=== PATIENT | female | born 1935 | race Caucasian/White ===

== ENCOUNTER 2017-12-29 14:14 | Inpatient (IN) | payer OTHER, SELFPAY ==
[2017-12-29] VITALS (18 sets, daily range): BP systolic 123–189; BP diastolic 79–99; PULSE 75–106; RESP 12–24; TEMP 36.6–36.8; O2SAT 92–100; BMI 39.6
--- NOTE | 2017-12-29 14:23 | EKG12_ITS ---
Test Reason : SOB Blood Pressure : / mmHG Vent. Rate : 082 BPM Atrial Rate : 054 BPM P-R Int : 000 ms QRS Dur : 128 ms QT Int : 376 ms P-R-T Axes : 000 070 -72 degrees QTc Int : 439 ms Atrial fibrillation Right bundle branch block T wave abnormality, consider inferolateral ischemia Abnormal ECG Confirmed by TASHI VINCENT, GALLO ([id number]), visual effects editor ONEIL VAUGHN ([id number]) on 12/31/2017 4:06:10 PM Referred By: AMALIA Confirmed By:GALLO AKINS MD
--- NOTE | 2017-12-29 14:23 | RAD_ITS ---
STUDY: X-RAY CHEST REASON FOR EXAM: Female, 82 years old. Shortness of breath. Treated For bronchitis TECHNIQUE: Single AP portable view of the chest. COMPARISON: None. FINDINGS: There is a pattern of increased perihilar interstitial markings. There is vascular prominence. There is no demonstrated pleural abnormality. There is mild cardiac enlargement. Normal mediastinum and rossana. Normal visualized pulmonary arteries. There is atherosclerotic calcification of the aortic arch with tortuosity. Normal visualized thoracic spine. Normal visualized ribs, clavicles, and shoulders. There is no demonstrated abnormality of the visualized soft tissue structures of the upper abdomen. RAD/Chest 1 View (Portable) IMPRESSION: Findings suspicious for vascular congestion. Cannot exclude atypical infiltrates. Electronically Signed: Alisa Lainez MD at 14:48 EST Tel , Service support ,
[2017-12-29] MEDS: Ipratropium/Albuterol Sulfate 3 ML AMPUL.NEB INHALATION ×3 (14:36→22:35)
[2017-12-29 14:40] LABS: Absolute Lymphocyte Count 1.11 X10^3/ul (0.83-4.51); Absolute Neutrophil Count 6.8 X10^3/uL (2.0-7.7); Basophil# 0.04 X10^3/uL; Basophil% 0.4 % (0-1); Eosinophil# 0.14 X10^3/uL; Eosinophils% 1.5 % (0-5); Hemoglobin 9.5 g/dl (12.0-15.0); Lymphocyte # 1.11 X10^3/ul (4.0); Lymphocyte % 12.2 % (19-41); Mean Corp Hgb Conc 28.8 g/gl (32-36); Mean Corpuscular Hgb 24.2 pg (27.0-32.0); Mean Platelet Vol. 9.5 fl (6.2-12.0); Monocyte# 1.01 X10^3/uL; Monocyte% 11.1 % (0-10); Neutrophil # 6.77 X10^3/uL (2.7-7.7); Neutrophil % 74.6 % (47-70); POSITIVE COUNT NO; POSITIVE DIFFERENTIAL NO; POSITIVE MORPHOLOGY NO; Platelet Count 409 K/mm3 (150-450); RBC Distribution Width CV 18.9 % (11.6-14.6); RBC Distribution Width SD 57.2 fl (35.1-43.9); Red Blood Count 3.93 M/mm3 (4.2-5.4); White Blood Count 9.1 K/mm3 (4.4-11.0)
[2017-12-29] MEDS: MethylPREDNISolone 125 MG/2 ML Vial 60 MG IV (14:52)
[2017-12-29 14:58] LABS: Anion Gap 5 (5-15); BUN 27 mg/dL (7-18); BUN/Creat Ratio 31.9 RATIO (10-20); Calcium,Total 8.6 mg/dL (8.5-10.1); Chloride 104 mmol/L (98-107); Creatinine, Serum 0.85 mg/dL (0.55-1.02); EST Glomerular Filtration Rate 68 mL/min (>60); Est Glom Filt Rate - Afr Amer 83 mL/min (>60); Estimated Creatinine Clearance 49.62 ml/min; Glucose 197 mg/dL (74-106); Potassium 4.7 mmol/L (3.5-5.1); Sodium Level 139 mmol/L (136-145)
[2017-12-29 15:07] LABS: BNP,B-Type NATRIURETIC PEPTIDE 354.6 pg/mL (0-100)
[2017-12-29 15:26] LABS: Allen Test POS; Base Excess 5 mmol/L (-2 to +2); Bicarbonate 30.9 mmol/L (22-26); Blood Gas Specimen Type ART; EPAP 6; FI02 40; IPAP 12; PO2 77 mmHG (75-100); RR 12; SITE L Radial; SO2 94 % (95-99); Time Given 1518; Total Carbon Dioxide 33 mmol/L; pH 7.34 (7.35-7.45)
--- NOTE | 2017-12-29 15:55 | ED.VISSUMM ---
- ER Visit Summary Date of Service: 12/29/17 Chief Complaint: [Shortness of breath] History of Present Illness: The patient is a 82 F [presents the emergency department with 4 day history of increasing shortness of breath. Patient's had a cough and was started recently on Zithromax and prednisone. Patient apparently has had bronchitis diagnosed ?4 this winter. Patient is coughing and at times bringing up some white sputum. Patient has not had any fever.] Patient was found to be hypoxic on EMS arrival with an O2 sat of 85%. Patient currently on Eliquis for history of atrial fibrillation. Physical Examination: [HEENT-PERRLA, EOMI. Cranial nerves II through XII grossly intact. TMs clear. Mucous membranes moist. No adenopathy. Cardiovascular-regular rate and rhythm without murmur or ectopy Lungs-she presented via EMS on CPAP and in respiratory distress. Patient with tachypnea. She had diminished breath sounds bilaterally with some expiratory wheezes noted throughout. Abdomen-normoactive bowel sounds, soft, nontender, no rebound or rigidity, no peritoneal signs. Extremities-intact ?4, normal range of motion, normal pulses, atraumatic]. Patient has +1 edema both lower extremities and both lower extremity's are wrapped with Isaac wraps. Test Results: [EKG obtained on arrival showed atrial fibrillation with a ventricular rate of 82 bpm with a right bundle branch block. Patient had some nonspecific ST changes noted. No old EKGs available for comparison. CBC with differential showed white count 9.1, heme globin 9.5, hematocrit 33, platelet 409. History is unremarkable. Troponin was 0.03. BNP was elevated 354. Chest x-ray showed vascular congestion. Patient ABG after being on BiPAP for approximately half an hour showed a pH of 7.34 CO2 of 57 PaO2 of 77 bicarbonate 31 and a 94% sat.] Emergency Department Course and Treatment: [Patient received a DuoNeb aerosol and Solu-Medrol IV. Patient received Lasix 40 mg IV.] Treatment Plan: [Admit] Disposition: [Admit] Impression: [Respiratory failure with hypoxemia Bronchitis CHF] This note was generated with [employer] dictation software. It may contain incorrect words, spelling, and punctuation that were not noted in review of the chart prior to signing ED Disposition - Plan for ED Patient: Chief Complaint: Shortness of Breath
[2017-12-29] MEDS: Furosemide 40 MG/4 ML Vial IV ×2 (15:58→22:28)
--- NOTE | 2017-12-29 16:04 | PCM.HP.STD ---
Problem List (1) Acute respiratory failure with hypoxia Status: Acute (2) CHF (congestive heart failure) Status: Acute Qualifiers: Heart failure type: unspecified Heart failure chronicity: acute Qualified Code(s): I50.9 - Heart failure, unspecified (3) Bronchitis Status: Chronic (4) Afib Status: Chronic Qualifiers: Atrial fibrillation type: paroxysmal Qualified Code(s): I48.0 - Paroxysmal atrial fibrillation (5) Essential (primary) hypertension Status: Chronic (6) CVA (cerebral vascular accident) Status: Acute (7) CVA, old, hemiparesis Status: Chronic History of Present Illness Date of Admission: 12/29/17 Chief Complaint: Shortness of breath The patient is a 82 year old F with past medical history significant for paroxysmal A. fib, previous CVA with left-sided hemiparesis hypertension who presented with shortness of breath. Patient symptoms started about a week prior to her admission. She had apparently been managed as a case of infectious bronchitis with steroid and antibiotics without much improvement. Family did notice increasing work of breathing over the past couple of days. Patient had apparently reported increasing swelling in both lower extremities. She denied any chills or fever. She was brought to the emergency department where she was found to be profoundly hypoxic with oxygen saturation in the mid 80s. She was placed on BiPAP subsequent imaging studies consistent with congestive heart failure. Admitted to monitored bed for subsequent management. Past Medical History Past Medical History (Chronic Problems): Chronic Problems Bronchitis (Chronic) Afib (Chronic) Essential (primary) hypertension (Chronic) CVA, old, hemiparesis (Chronic) Allergies Sulfa (Sulfonamide Antibiotics) Allergy (Verified 12/29/17 14:20) Other Home Medications: Ambulatory Orders Medication Instructions Recorded Amlodipine [Norvasc] 5 mg PO DAILY 11/15/16 Digoxin [Lanoxin] 125 mcg PO QHS 11/15/16 Lisinopril [Zestril] 20 mg PO BID 11/15/16 Triamterene 75MG/Hctz 50MG 0.5 tablet PO DAILY 11/15/16 [Maxzide] Apixaban [Eliquis] 5 mg PO BID 12/29/17 Aspirin [Aspir-Low] 81 mg PO DAILY 12/29/17 Gabapentin [Neurontin] 300 mg PO DAILY 12/29/17 Metoprolol Tartrate [Lopressor 50 mg PO BID 12/29/17 (Beta Kathe)] Prednisone 15 mg PO DAILY 12/29/17 Sertraline HCl [Zoloft] 12.5 mg PO DAILY 12/29/17 Smoking Status: Never smoker - *Family History Paternal History Items: No pertinent history Review of Systems Unable to obtain accurate/complete ROS d/t: Patient being on BiPAP VTE Information - Inpt Only VTE Present on Admission: No VTE Mechan Device Prophylaxis: Knee High JORGE Hose VTE Pharm Prophylaxis ordered?: Yes Patient Problems: Active and Suspected Problems Acute respiratory failure with hypoxia (Acute) CHF (congestive heart failure) (Acute) CVA (cerebral vascular accident) (Acute) Objective: GENERAL: Dyspneic at rest on BiPAP HEENT: Clear conjunctiva, NECK; supple, normal thyroid, CHEST: Diminished to auscultation bilaterally, HEART: Regular S1 S2, no audible murmurs ABDOMEN: soft, non-tender, normoactive bowel sounds, RECTAL: deferred EXTREMITIES: Bipedal edema, no clubbing, no cyanosis. POLICYHOLDER INFORMATION CLERK: Awake, left-sided hemiparesis SKIN: No rash - Physical Exam Vital Signs Temp Pulse Resp BP Pulse Ox 97.8 F 75 22 H 123/80 H 95 12/29/17 15:58 12/29/17 16:01 12/29/17 16:01 12/29/17 16:01 12/29/17 16:01 Oxygen Flow Rate 3 Oxygen Delivery Method Bi-pap Weight: 114.7 kg Body Mass Index (BMI) 39.6 Microbiology Past 72 Hours 12/29/17 15:10 Influenza Types A,B Direct FA (SAAR) - Final Mucosa - Nose Laboratory Tests Past 24 Hrs 12/29/17 12/29/17 12/29/17 14:20 14:20 14:20 WBC 9.1 RBC 3.93 L Hgb 9.5 L Hct 33.0 L MCV 84.0 MCH 24.2 L MCHC 28.8 L RDW 18.9 H RDW Differential 57.2 H Plt Count 409 MPV 9.5 Immature Gran % (Auto) 0.200 Neut % (Auto) 74.6 H Lymph % (Auto) 12.2 L [place] % (Auto) 11.1 H Eos % (Auto) 1.5 Baso % (Auto) 0.4 Absolute Neuts (auto) 6.8 Absolute Lymphs (auto) 1.11 Total Counted Not Reportable Specimen Type Sample Site pH Bicarbonate Actual POC Total CO2 Base Excess O2 Saturation O2 % ABG pCO2 ABG pO2 Kemal Test Respiration Rate O2 Delivery Device EPAP IPAP Blood Gas Notified Whom Blood Gas Notified Time Sodium 139 Potassium 4.7 Chloride 104 Carbon Dioxide 30.0 Anion Gap 5 BUN 27 H Creatinine 0.85 Estim Creat Clear Calc 49.62 Est GFR (MDRD) Af Amer 83 Est GFR (MDRD) Non-Af 68 BUN/Creatinine Ratio 31.9 H Glucose 197 H Calcium 8.6 Troponin I 0.03 B-Natriuretic Peptide 354.6 H 12/29/17 15:19 WBC RBC Hgb Hct MCV MCH MCHC RDW RDW Differential Plt Count MPV Immature Gran % (Auto) Neut % (Auto) Lymph % (Auto) [place] % (Auto) Eos % (Auto) Baso % (Auto) Absolute Neuts (auto) Absolute Lymphs (auto) Total Counted Specimen Type ART Sample Site L Radial pH 7.34 L Bicarbonate Actual 30.9 H POC Total CO2 33 Base Excess 5 H O2 Saturation 94 L O2 % 40 ABG pCO2 57.0 H ABG pO2 77 Kemal Test POS Respiration Rate 12 O2 Delivery Device Bi / C PAP EPAP 6 IPAP 12 Blood Gas Notified Whom ED MD Blood Gas Notified Time 1518 Sodium Potassium Chloride Carbon Dioxide Anion Gap BUN Creatinine Estim Creat Clear Calc Est GFR (MDRD) Af Amer Est GFR (MDRD) Non-Af BUN/Creatinine Ratio Glucose Calcium Troponin I B-Natriuretic Peptide Assessment/Plan Active and Suspected Problems Acute respiratory failure with hypoxia (Acute) CHF (congestive heart failure) (Acute) CVA (cerebral vascular accident) (Acute) Patient is an 82 year old obese lady presented with progressive shortness of breath and assessment of acute hypoxic respiratory failure secondary to suspected diastolic CHF made placed on BiPAP admitted to monitored bed Acute hypoxic respiratory failure secondary to suspected acute diastolic CHF with superimposed bronchitis 2. Acute CHF unspecified at this point by do suspect diastolic dysfunction in view of patient's underlying A. fib. Admitted to a monitored bed as stated above patient was placed on noninvasive ventilation BiPAP, fluid restriction, IV Lasix, daily weights, strict input and output. Ordered a 2D echo for EF assessment 3. Acute infectious bronchitis on steroid added doxycycline 4. Morbid obesity with BMI of 39.6 weight loss advised 5. Paroxysmal A. fib rate controlled, on systemic anticoagulation with Eliquis 6. History of CVA in February 2017 with residual left-sided hemiparesis 7. Hypertension-blood pressure controlled, home medications continued with dose adjustment as needed 8. DVT prophylaxis on Eliquis no need for additional measures. Code Visit Inpatient E&M: [id number] [facility] L3
--- NOTE | 2017-12-29 16:15 | ECHOD_ITS ---
Reason For Study: CHF Procedure This was a 2D Doppler, Color Flow transthoracic echocardiogram. Exam performed portable in patient room. Left Ventricle Normal LV size. Mild concentric left ventricular hypertrophy. Left ventricular systolic function is normal. The estimated ejection fraction is 60 %. Transmitral and pulmonary venous doppler flow suggestive of impaired relaxation of left ventricle. Transmitral doppler flow suggestive of elevated left atrial pressure. No regional wall motion abnormalities noted. Right Ventricle Normal RV size. Normal systolic function. Atria The left atrium is mildly enlarged. Normal right atrium. Mitral Valve Normal mitral valve. Tricuspid Valve Normal tricuspid valve. Aortic Valve Trisinus/trileaflet aortic valve. Mild focal aortic valve calcification. Peak aortic valve gradient 32 mmHg. Mean aortic valve gradient 17 mmHg. Mild aortic stenosis. Calculated aortic valve area (continuity equation) is 1.4 cm2. Mild (1+) aortic valve insufficiency. Pulmonic Valve Normal pulmonic valve. Mild (1+) pulmonic valve insufficiency. Great Vessels Normal aortic root. The pulmonary artery is normal size. Normal inferior vena cava. Pericardium/Pleural No pericardial effusion. MMode/2D Measurements & Calculations LVIDd: 4.5 cm IVSd: 1.3 cm LVOT diam: 2.0 cm LVIDs: 2.8 cm LVPWd: 1.2 cm LVOT area: 3.1 cm2 RVDd: 3.6 cm FS: 38.6 % Ao root diam: 3.4 cm LAV(MOD-bp): 83.4 ml LA A4 area: 26.8 cm2 LA dimension: 4.4 cm LAV(MOD-bp) Indexed: 37.4 ml/m2 LAV(MOD-sp2): 73.7 ml LAV(MOD-sp4): 84.0 ml RA A4 area: 24.6 cm2 Doppler Measurements & Calculations MV E max aron: 146.6 cm/sec Lat Peak E' Aron: 9.5 cm/sec Med Peak E' Aron: 5.6 cm/sec MV A max aron: 42.5 cm/sec E/E' lat: 15.4 E/E' med: 26.0 MV E/A: 3.4 MV V2 max: 169.6 cm/sec Ao V2 max: 284.5 cm/sec AI max aron: 382.3 cm/sec MV max P.5 mmHg Ao max P.4 mmHg AI max P.5 mmHg MV V2 mean: 93.8 cm/sec Ao V2 mean: 197.0 cm/sec AI dec slope: 199.9 cm/sec2 MV mean P.2 mmHg Ao mean P.5 mmHg AI P1/2t: 560.2 msec MV V2 VTI: 36.5 cm Ao V2 VTI: 50.7 cm MVA(VTI): 1.9 cm2 LISET(I,D): 1.4 cm2 LISET(V,D): 1.4 cm2 LV V1 max: 127.6 cm/sec SV(LVOT): 69.2 ml PA V2 max: 95.1 cm/sec LV V1 max P.5 mmHg LV V1 mean P.6 mmHg LV V1 mean: 88.9 cm/sec LV V1 VTI: 22.6 cm PI end-d aron: 131.0 cm/sec TR max aron: 258.7 cm/sec TR max P.8 mmHg Interpretation Summary Normal LV size. Mild concentric left ventricular hypertrophy. Transmitral doppler flow suggestive of elevated left atrial pressure. No regional wall motion abnormalities noted. The estimated ejection fraction is 60 %. Mild aortic stenosis. Mild (1+) aortic valve insufficiency. Calculated aortic valve area (continuity equation) is 1.4 cm2. Ordering Physician: Mario Davis Referring Physician: Reinier Sweeney Performed By: Josy Montes De Oca RDCS, RVT
[2017-12-29 16:47] LABS: Magnesium 2.4 mg/dL (1.6-2.6)
[2017-12-29 16:48] LABS: Digoxin Level 1.01 ng/mL (0.80-2.00)
[2017-12-29] MEDS: Docusate Sodium 100 MG Capsule PO (22:28)
[2017-12-29] MEDS: guaiFENesin 1,200 MG Tablet 1200 MG PO (22:28)
--- NOTE | 2017-12-29 23:28 | CPS ---
Patient refused BIPAP treatment at this time. Patient was informed that it was in her best interest to wear BIPAP therapy but patient still denied therapy. Patient informed that if she changes her mind to have nursing staff call respiratory staff. RN aware.
[2017-12-30] VITALS (22 sets, daily range): BP systolic 127–183; BP diastolic 56–93; PULSE 76–102; RESP 16–24; TEMP 36.4–37; O2SAT 93–97
[2017-12-30] MEDS: Zolpidem Tartrate 5 MG Tablet PO (00:32)
[2017-12-30] MEDS: Ipratropium/Albuterol Sulfate 3 ML AMPUL.NEB INHALATION ×5 (03:00→19:58)
[2017-12-30 04:13] LABS: Hematocrit 31.7 % (37-47); Hemoglobin 9.3 g/dl (12.0-15.0); Mean Corp Hgb Conc 29.3 g/gl (32-36); Mean Corpuscular Hgb 24.3 pg (27.0-32.0); Mean Corpuscular Volume 82.8 fL (81-99); Mean Platelet Vol. 9.2 fl (6.2-12.0); Platelet Count 387 K/mm3 (150-450); RBC Distribution Width CV 18.8 % (11.6-14.6); RBC Distribution Width SD 55.3 fl (35.1-43.9); Red Blood Count 3.83 M/mm3 (4.2-5.4); White Blood Count 5.6 K/mm3 (4.4-11.0)
[2017-12-30 04:20] LABS: Scan Indicated on CBC? Y/N NO
[2017-12-30 04:43] LABS: Anion Gap 11 (5-15); BUN 32 mg/dL (7-18); BUN/Creat Ratio 28.1 RATIO (10-20); Calcium,Total 8.5 mg/dL (8.5-10.1); Chloride 96 mmol/L (98-107); Creatinine, Serum 1.14 mg/dL (0.55-1.02); EST Glomerular Filtration Rate 49 mL/min (>60); Est Glom Filt Rate - Afr Amer 59 mL/min (>60); Glucose 169 mg/dL (74-106); Potassium 3.7 mmol/L (3.5-5.1); Sodium Level 141 mmol/L (136-145)
--- NOTE | 2017-12-30 04:48 | NURSING ---
pt 's granddaughters stayed with pt overnight in room
[2017-12-30] MEDS: Furosemide 40 MG/4 ML Vial IV (05:11)
[2017-12-30] MEDS: Metoprolol Tartrate 50 MG Tablet PO ×2 (05:11→21:45)
[2017-12-30] MEDS: amLODIPine 5 MG Tablet PO (05:12)
[2017-12-30] MEDS: Sertraline 50 MG Tablet 12.5 MG PO (09:17)
[2017-12-30] MEDS: APIXABAN 5 MG TABLET PO ×2 (09:17→21:46)
[2017-12-30] MEDS: Triamterene 75MG/Hctz 50MG Tablet 0.5 TABLET PO (09:17)
[2017-12-30] MEDS: Gabapentin 300 MG Capsule PO (09:17)
[2017-12-30] MEDS: Lisinopril 20 MG Tablet PO ×2 (09:17→21:45)
[2017-12-30] MEDS: Aspirin E.C. 81 MG Tablet PO (09:17)
[2017-12-30] MEDS: Docusate Sodium 100 MG Capsule PO ×2 (09:18→21:46)
[2017-12-30] MEDS: guaiFENesin 1,200 MG Tablet 1200 MG PO ×2 (09:18→21:46)
--- NOTE | 2017-12-30 11:17 | PCM.PN.HOSP ---
Patient Problems: Active and Suspected Problems Acute respiratory failure with hypoxia (Acute) CHF (congestive heart failure) (Acute) CVA (cerebral vascular accident) (Acute) Subjective: Patient seen and examined. Still SOB with the least movement. Denies chest pain, or dizziness or palpitations. Vitals/I&O's: Vital Signs Temp Pulse Resp BP Pulse Ox 97.5 F L 86 18 155/93 H 95 12/30/17 07:43 12/30/17 07:43 12/30/17 07:43 12/30/17 07:43 12/30/17 07:43 Oxygen Flow Rate 3 Oxygen Delivery Method Nasal Cannula Weight: 107.6 kg Intake and Output for Last 24 Hours 12/28/17 12/29/17 12/30/17 23:59 23:59 23:59 Intake Total 200 / 200 240 / 240 Balance 200 / 200 240 / 240 General: Alert, Oriented x3, Cooperative, - - obese, in mild respiratory distress, HEENT: Atraumatic, PERRLA, EOMI, Normocephalic Oral: Moist Mucosa Neck: Supple Lungs: Diminished, Rales - at lung bases, Wheezes Cardiovascular: Regular rate, Regular Rhythm, Normal S1, Normal S2, No murmurs Abdomen: Bowel Sounds Present, Soft, Non Tender, Non-Distended, No Hepato-splenomegaly, Obese Extremities: No edema Skin: No rashes, No breakdown Musculoskeletal: No Tenderness to Palpation of Joints or Extremities Lymphatic: No Cervical, Supraclavicular, or Inguinal Adenopathy Neurological: Cranial nerves II-XII grossly intact, Neuro grossly intact Psych/Mental Status: Normal Affect, Appropriate Laboratory Results 12/29/17 18:25: Troponin I 0.03 12/29/17 22:25: Troponin I 0.04 12/30/17 04:00: WBC 5.6, RBC 3.83 L, Hgb 9.3 L, Hct 31.7 L, MCV 82.8, MCH 24.3 L, MCHC 29.3 L, RDW 18.8 H, RDW Differential 55.3 H, Plt Count 387, MPV 9.2 12/30/17 04:00: Sodium 141, Potassium 3.7, Chloride 96 L, Carbon Dioxide 34.0 H, Anion Gap 11, BUN 32 H, Creatinine 1.14 H, Estim Creat Clear Calc 37.00, Est GFR (MDRD) Af Amer 59 L, Est GFR (MDRD) Non-Af 49 L, BUN/Creatinine Ratio 28.1 H, Glucose 169 H, Calcium 8.5 12/30/17 04:00: Troponin I 0.03 Current Medications Al Hydroxide/Mg Hydroxide (Mylanta Ii) 30 ml PO Q6H PRN PRN PRN Reason: Gastric burning Albuterol Sulfate (Ventolin Aerosols) 2.5 mg INHALATION Q2H PRN PRN PRN Reason: SHORTNESS OF BREATH Albuterol/Ipratropium (Duoneb) 3 ml INHALATION Q4H.RT [facility] Last Admin: 12/30/17 11:04 Dose: 3 ml Amlodipine Besylate (Norvasc) 5 mg PO DAILY [facility] Last Admin: 12/30/17 05:12 Dose: 5 mg Apixaban (Eliquis) 5 mg PO BID [facility] Last Admin: 12/30/17 09:17 Dose: 5 mg [facility] ([facility]) [facility] Admin: 12/30/17 09:17 Dose: 81 mg Digoxin (Lanoxin) 125 mcg PO QHS [facility] Docusate Sodium (Colace) 100 mg PO BID [facility] Last Admin: 12/30/17 09:18 Dose: 100 mg Furosemide (Lasix) 40 mg IV DAILY [facility] Gabapentin ([facility]urontin) [facility] Last Admin: 12/30/17 09:17 Dose: 300 mg Guaifenesin (Mucinex) 1,200 mg PO BID [facility] Last Admin: 12/30/17 09:18 Dose: 1,200 mg Lisinopril (Zestril) 20 mg PO BID [facility] Last Admin: 12/30/17 09:17 Dose: 20 mg Magnesium Hydroxide (Milk Of Magnesia) 30 ml PO DAILY PRN PRN Reason: Constipation Methylprednisolone (Solu-Medrol) 40 mg IV Q8 [facility] Stop: 12/30/17 22:01 Last Admin: 12/30/17 05:11 Dose: 40 mg Metoprolol Tartrate (Lopressor (Beta Kathe)) 50 mg PO BID [facility] Last Admin: 12/30/17 05:11 Dose: 50 mg Oxycodone HCl (Oxyir) 5 mg PO Q4H PRN PRN PRN Reason: Moderate Pain (pain scale 4-5) Prednisone (Prednisone) 40 mg PO DAILY@0800 [facility] Promethazine HCl (Phenergan (Ll)) 12.5 mg IV Q6H PRN PRN PRN Reason: NAUSEA/VOMITING Sertraline HCl (Zoloft) 12.5 mg PO DAILY [facility] Last Admin: 12/30/17 09:17 Dose: 12.5 mg Sodium Chloride () 5 - 30 ml IV UD PRN PRN Reason: SALINE FLUSH Triamterene/HCTZ (Maxzide) 0.5 tablet PO DAILY [facility] Last Admin: 12/30/17 09:17 Dose: 0.5 tablet Zolpidem Tartrate (Ambien (Generic)) 5 mg PO QHS PRN PRN PRN Reason: INSOMNIA Last Admin: 12/30/17 00:32 Dose: 5 mg Assessment/Plan Active and Suspected Problems Acute respiratory failure with hypoxia (Acute) CHF (congestive heart failure) (Acute) CVA (cerebral vascular accident) (Acute) 82 year old female admitted with progressive shortness of breath and managed as acute hypoxic respiratory failure secondary to suspected diastolic CHF. 1. Acute hypoxic respiratory failure secondary to suspected acute diastolic CHF with superimposed bronchitis, remains on 3 L of oxygen, wean off for SPO2 more than 94%, continue breathing treatment 2. Acute CHF, unclear EF now, 2d-echo is pending, Lasix 40 mg IV q. 8, would switch to 40 mg daily in the light of worsening kidney function, continue with fluid restriction, IV Lasix, daily weights, strict input and output. 3. Acute bronchitis, per daughter, patient has had repeated episodes of bronchitis since July, being on steroids and antibiotics on and off, continue on IV steroids as patient has wheezes, continue on doxycycline, unclear if patient has underlying COPD, would need PFTs when discharged to the outpatient. 4. Acute kidney injury likely secondary to overdiuresis, would hold back on Lasix and switch to 40 mg IV daily, repeat BMP in a.m. 5. Morbid obesity with BMI of 39.6 weight loss advised 6. Paroxysmal A. fib rate controlled, on systemic anticoagulation with Eliquis 7. 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 Hypertension- uncontrolled, increase amlodipine to 5 mg p.o. daily, metoprolol 50 mg p.o. twice daily, lisinopril 20 mg p.o. twice daily 9. DVT prophylaxis - on Eliquis
--- NOTE | 2017-12-30 13:20 | CASEMGMT ---
Face to Face with patient for initial transition planning/care coordination assessment. RN JORDANA introduced self and role at [facility], pt voices understanding and consents to assessment at this time. Pt is sitting up in bed in no distress at this time. Pt A/O x4 at this time and answers all questions appropriately at this time. Care providers, pharmacy, and demographics verified. See attached link. Pt voices no further concerns/needs at this time. Advised pt to ask for CM if any further questions/concerns/needs arise, voices understanding. CM to follow PT/OT for HHC therapy recommendation. PLAN: [place] [facility] SILVE[facility]
[2017-12-30] MEDS: 0.9% NaCl Peripheral Flush Adult/Peds IV ×2 (13:56→21:55)
[2017-12-30] MEDS: Digoxin 125 MCG Tablet PO (21:46)
[2017-12-31] VITALS (20 sets, daily range): BP systolic 121–187; BP diastolic 51–104; PULSE 71–95; RESP 18–21; TEMP 36.4–36.8; O2SAT 89–95
[2017-12-31] MEDS: Ipratropium/Albuterol Sulfate 3 ML AMPUL.NEB INHALATION ×5 (03:08→23:55)
[2017-12-31 06:29] LABS: Anion Gap 6 (5-15); BUN 40 mg/dL (7-18); BUN/Creat Ratio 41.7 RATIO (10-20); Calcium,Total 8.6 mg/dL (8.5-10.1); Chloride 96 mmol/L (98-107); Creatinine, Serum 0.96 mg/dL (0.55-1.02); EST Glomerular Filtration Rate 59 mL/min (>60); Est Glom Filt Rate - Afr Amer 72 mL/min (>60); Estimated Creatinine Clearance 43.94 ml/min; Glucose 127 mg/dL (74-106); Sodium Level 138 mmol/L (136-145)
[2017-12-31] MEDS: Gabapentin 300 MG Capsule PO (08:28)
[2017-12-31] MEDS: Aspirin E.C. 81 MG Tablet PO (08:28)
[2017-12-31] MEDS: APIXABAN 5 MG TABLET PO ×2 (08:29→21:06)
[2017-12-31] MEDS: Docusate Sodium 100 MG Capsule PO ×2 (08:29→21:06)
[2017-12-31] MEDS: Furosemide 40 MG/4 ML Vial IV (08:30)
[2017-12-31] MEDS: Metoprolol Tartrate 50 MG Tablet PO ×2 (08:30→21:06)
[2017-12-31] MEDS: guaiFENesin 1,200 MG Tablet 1200 MG PO ×2 (08:31→21:06)
[2017-12-31] MEDS: Sertraline 50 MG Tablet 12.5 MG PO (08:31)
[2017-12-31] MEDS: amLODIPine 5 MG Tablet PO (08:31)
[2017-12-31] MEDS: Lisinopril 20 MG Tablet PO ×2 (08:31→21:06)
[2017-12-31] MEDS: 0.9% NaCl Peripheral Flush Adult/Peds IV (08:32)
--- NOTE | 2017-12-31 09:45 | PCM.PN.HOSP ---
Patient Problems: Active and Suspected Problems Acute respiratory failure with hypoxia (Acute) CHF (congestive heart failure) (Acute) CVA (cerebral vascular accident) (Acute) Subjective: Follow-up on Acute hypoxic respiratory insufficiency Patient was seen and examined. Feels much better. No fever or chills. Has productive cough. Denies chest pain, palpitations or dizziness. ROS was negative Objective: PHYSICAL EXAM: General: Alert, Oriented x3, Cooperative, - - obese, in mild respiratory distress, on 3L oxygen HEENT: Atraumatic, PERRLA, EOMI, Normocephalic Oral: Moist Mucosa Neck: Supple Lungs: Diminished, Rales - at lung bases, Wheezes all over chest, improved but still present. Cardiovascular: Regular rate, Regular Rhythm, Normal S1, Normal S2, No murmurs Abdomen: Bowel Sounds Present, Soft, Non Tender, Non-Distended, No Hepato-splenomegaly, Obese Extremities: No edema Skin: No breakdown Musculoskeletal: No Tenderness to Palpation of Joints or Extremities Lymphatic: No Cervical, Supraclavicular, or Inguinal Adenopathy Neurological: Cranial nerves II-XII grossly intact, Neuro grossly intact Psych/Mental Status: Normal Affect, Appropriate Vitals/I&O's: Vital Signs Temp Pulse Resp BP Pulse Ox 98.3 F 92 18 187/104 H 95 12/31/17 08:26 12/31/17 08:30 12/31/17 08:26 12/31/17 08:26 12/31/17 08:26 Oxygen Flow Rate (L/min) 2 Oxygen Delivery Method Room Air Weight: 105.5 kg Intake and Output for Last 24 Hours 12/29/17 12/30/17 12/31/17 23:59 23:59 23:59 Intake Total 200 / 200 780 / 780 250 / 250 Output Total 525 / 525 Balance 200 / 200 255 / 255 250 / 250 Laboratory Results 12/31/17 05:30: Sodium 138, Potassium 4.0, Chloride 96 L, Carbon Dioxide 36.0 H, Anion Gap 6, BUN 40 H, Creatinine 0.96, Estim Creat Clear Calc 43.94, Est GFR (MDRD) Af Amer 72, Est GFR (MDRD) Non-Af 59 L, BUN/Creatinine Ratio 41.7 H, Glucose 127 H, Calcium 8.6 Current Medications Al Hydroxide/Mg Hydroxide (Mylanta Ii) 30 ml PO Q6H PRN PRN PRN Reason: Gastric burning Albuterol Sulfate (Ventolin Aerosols) 2.5 mg INHALATION Q2H PRN PRN PRN Reason: SHORTNESS OF BREATH Albuterol/Ipratropium (Duoneb) 3 ml INHALATION Q4H.RT [facility] Last Admin: 12/31/17 07:01 Dose: 3 ml Amlodipine Besylate (Norvasc) 5 mg PO DAILY [facility] Last Admin: 12/31/17 08:31 Dose: 5 mg Apixaban (Eliquis) 5 mg PO BID [facility] Last Admin: 12/31/17 08:29 Dose: 5 mg [facility] ([facility]) [facility] Last Admin: 12/31/17 08:28 Dose: 81 mg Digoxin (Lanoxin) 125 mcg PO QHS [facility] Last Admin: 12/30/17 21:46 Dose: 125 mcg Docusate Sodium (Colace) 100 mg PO BID [facility] Last Admin: 12/31/17 08:29 Dose: 100 mg Furosemide (Lasix) 40 mg IV DAILY [facility] Last Admin: 12/31/17 08:30 Dose: 40 mg Gabapentin (Neurontin) [facility] Last Admin: 12/31/17 08:28 Dose: 300 mg Guaifenesin (Mucinex) 1,200 mg PO BID [facility] Last Admin: 12/31/17 08:31 Dose: 1,200 mg Lisinopril (Zestril) 20 mg PO BID [facility] Last Admin: 12/31/17 08:31 Dose: 20 mg Magnesium Hydroxide (Milk Of Magnesia) 30 ml PO DAILY PRN PRN Reason: Constipation Metoprolol Tartrate (Lopressor (Beta Kathe)) 50 mg PO BID [facility] Last Admin: 12/31/17 08:30 Dose: 50 mg Oxycodone HCl (Oxyir) 5 mg PO Q4H PRN PRN PRN Reason: Moderate Pain (pain scale 4-5) Prednisone (Prednisone) 40 mg PO DAILY@0800 [facility] Last Admin: 12/31/17 08:29 Dose: 40 mg Promethazine HCl (Phenergan (Ll)) 12.5 mg IV Q6H PRN PRN PRN Reason: NAUSEA/VOMITING Sertraline HCl (Zoloft) 12.5 mg PO DAILY [facility] Last Admin: 12/31/17 08:31 Dose: 12.5 mg Sodium Chloride () 5 - 30 ml IV UD PRN PRN Reason: SALINE FLUSH Last Admin: 12/31/17 08:32 Dose: 10 ml Zolpidem Tartrate (Ambien (Generic)) 5 mg PO QHS PRN PRN PRN Reason: INSOMNIA Last Admin: 12/30/17 00:32 Dose: 5 mg Assessment/Plan Active and Suspected Problems Acute respiratory failure with hypoxia (Acute) CHF (congestive heart failure) (Acute) CVA (cerebral vascular accident) (Acute) 82 year old female admitted with progressive shortness of breath and managed as acute hypoxic respiratory failure secondary to suspected diastolic CHF. 1. Acute hypoxic respiratory failure secondary to acute diastolic CHF with superimposed bronchitis, improving slowly, remains on 3 L of oxygen, wean off for SPO2 more than 94%, continue breathing treatments, add incentive spirometer. 2. Acute diastolic CHF exacerbation, diuresing well, lost 2 kg of weight, on Lasix 40 mg IV daily, will continue same management. 3. Acute bronchitis, history of repeated episodes of bronchitis since July, being on steroids and antibiotics on and off, suspect underlying COPD, on IV steroids and doxycycline, continue same, would need PFTs when discharged. 4. Acute kidney injury likely secondary to overdiuresis, improved, on Lasix 40 mg IV daily, BMP in a.m. 5. Morbid obesity with BMI of 39.6 weight loss advised 6. Paroxysmal A. fib, rate controlled, on systemic anticoagulation with Eliquis 7. 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 8. Hypertension- controlled, continue on amlodipine to 5 mg p.o. daily, metoprolol 50 mg p.o. twice daily, lisinopril 20 mg p.o. twice daily 9. DVT prophylaxis - on Eliquis Code Visit Inpatient E&M: 14323 Subs Hosp L2
--- NOTE | 2017-12-31 10:41 | CASEMGMT ---
SW spoke with patient's daughterSusan yesterday regarding Hospice and Palliative Care. Physician then spoke with patient's son and he wanted to ask SW about Hospice/Palliative Care. Physician said she does not feel patient would qualify for Hospice, but Palliative would be okay. HELENA then spoke with patient's son about Palliative Care. He was open to a referral being made. He said they should call his sisterSirisha to set up a time. SW to make a referral to Palliative Care. Iwona BRANDON MSW
--- NOTE | 2017-12-31 14:12 | CASEMGMT ---
Per Daniela MALIK, pt/family state no preference for HHC and are fine with [facility] at this time. Referral to Katheryn at [facility] at this time, voices understanding. Pt/family updated at this time, voice understanding. Pt states no further concerns/needs at this time. Abdiaziz HANSON CM
[2017-12-31] MEDS: Albuterol 2.5 MG/3 ML VIAL.NEB. INHALATION (20:43)
[2017-12-31] MEDS: Digoxin 125 MCG Tablet PO (21:05)
[2018-01-01] VITALS (17 sets, daily range): BP systolic 117–162; BP diastolic 76–91; PULSE 65–94; RESP 16–24; TEMP 36.5–37; O2SAT 92–98
[2018-01-01] MEDS: Ipratropium/Albuterol Sulfate 3 ML AMPUL.NEB INHALATION ×6 (03:10→23:45)
[2018-01-01 06:35] LABS: Anion Gap 6 (5-15); BUN 44 mg/dL (7-18); BUN/Creat Ratio 62.1 RATIO (10-20); Calcium,Total 8.4 mg/dL (8.5-10.1); Chloride 98 mmol/L (98-107); Creatinine, Serum 0.71 mg/dL (0.55-1.02); EST Glomerular Filtration Rate 84 mL/min (>60); Est Glom Filt Rate - Afr Amer 102 mL/min (>60); Estimated Creatinine Clearance 42.18 ml/min; Glucose 78 mg/dL (74-106); Potassium 3.5 mmol/L (3.5-5.1); Sodium Level 140 mmol/L (136-145)
[2018-01-01] MEDS: Sertraline 50 MG Tablet 12.5 MG PO (09:15)
[2018-01-01] MEDS: Lisinopril 20 MG Tablet PO ×2 (09:16→21:00)
[2018-01-01] MEDS: Metoprolol Tartrate 50 MG Tablet PO ×2 (09:17→21:04)
[2018-01-01] MEDS: APIXABAN 5 MG TABLET PO ×2 (09:17→21:00)
[2018-01-01] MEDS: Docusate Sodium 100 MG Capsule PO (09:17)
[2018-01-01] MEDS: Gabapentin 300 MG Capsule PO (09:17)
[2018-01-01] MEDS: amLODIPine 5 MG Tablet PO (09:17)
[2018-01-01] MEDS: guaiFENesin 1,200 MG Tablet 1200 MG PO ×2 (09:17→21:01)
[2018-01-01] MEDS: Aspirin E.C. 81 MG Tablet PO (09:17)
[2018-01-01] MEDS: 0.9% NaCl Peripheral Flush Adult/Peds IV (09:19)
[2018-01-01] MEDS: Furosemide 40 MG/4 ML Vial IV (09:20)
--- NOTE | 2018-01-01 10:09 | CASEMGMT ---
EHLENA faxed referral to Palliative Care. HELENA also called Palliative and spoke with Yesi regarding referral. Iwona BRANDON MSW
--- NOTE | 2018-01-01 15:11 | PCM.PN.HOSP ---
Patient Problems: Active and Suspected Problems Acute respiratory failure with hypoxia (Acute) CHF (congestive heart failure) (Acute) CVA (cerebral vascular accident) (Acute) Subjective: Patient was seen and examined. Feels much better. Denies any fever or chills or SOB. Objective: PHYSICAL EXAM: General: Alert, Oriented x3, Cooperative, - - obese, in mild respiratory distress, on 3L oxygen HEENT: Atraumatic, PERRLA, EOMI, Normocephalic Oral: Moist Mucosa Neck: Supple Lungs: Diminished, Rales - at lung bases, Wheezes all over chest, improved few scattered wheezes present. Cardiovascular: Regular rate, Regular Rhythm, Normal S1, Normal S2, No murmurs Abdomen: Bowel Sounds Present, Soft, Non Tender, Non-Distended, No Hepato-splenomegaly, Obese Extremities: No edema Skin: No breakdown Musculoskeletal: No Tenderness to Palpation of Joints or Extremities Lymphatic: No Cervical, Supraclavicular, or Inguinal Adenopathy Neurological: Cranial nerves II-XII grossly intact, Neuro grossly intact Psych/Mental Status: Normal Affect, Appropriate Vitals/I&O's: Vital Signs Temp Pulse Resp BP Pulse Ox 98.6 F 73 16 162/91 H 93 01/01/18 09:00 01/01/18 11:10 01/01/18 10:35 01/01/18 09:00 01/01/18 09:00 Oxygen Flow Rate (L/min) 2 Oxygen Delivery Method Nasal Cannula Weight: 150.3 kg Intake and Output for Last 24 Hours 12/30/17 12/31/17 01/01/18 23:59 23:59 23:59 Intake Total 780 / 780 1060 / 1060 660 / 660 Output Total 525 / 525 1600 / 1600 500 / 500 Balance 255 / 255 -540 / -540 160 / 160 Laboratory Results 01/01/18 05:10: Sodium 140, Potassium 3.5, Chloride 98, Carbon Dioxide 36.0 H, Anion Gap 6, BUN 44 H, Creatinine 0.71, Estim Creat Clear Calc 42.18, Est GFR (MDRD) Af Amer 102, Est GFR (MDRD) Non-Af 84, BUN/Creatinine Ratio 62.1 H, Glucose 78, Calcium 8.4 L Current Medications Al Hydroxide/Mg Hydroxide (Mylanta Ii) 30 ml PO Q6H PRN PRN PRN Reason: Gastric burning Albuterol Sulfate (Ventolin Aerosols) 2.5 mg INHALATION Q2H PRN PRN PRN Reason: SHORTNESS OF BREATH Last Admin: 12/31/17 20:43 Dose: 2.5 mg Albuterol/Ipratropium (Duoneb) 3 ml INHALATION Q4H.RT [facility] Last Admin: 01/01/18 14:56 Dose: 3 ml Amlodipine Besylate (Norvasc) 5 mg PO DAILY [facility] Last Admin: 01/01/18 09:17 Dose: 5 mg Apixaban (Eliquis) 5 mg PO BID [facility] Last Admin: 01/01/18 09:17 Dose: 5 mg [facility]) [facility] Admin: 01/01/18 09:17 Dose: 81 mg Digoxin (Lanoxin) 125 mcg PO QHS [facility] Last Admin: 12/31/17 21:05 Dose: 125 mcg Docusate Sodium (Colace) 100 mg PO BID [facility] Last Admin: 01/01/18 09:17 Dose: 100 mg Furosemide (Lasix) 40 mg IV DAILY [facility] Last Admin: 01/01/18 09:20 Dose: 40 mg Gabap[facility] ([facility]ontin) [facility] Last Admin: 01/01/18 09:17 Dose: 300 mg Guaifenesin (Mucinex) 1,200 mg PO BID [facility] Last Admin: 01/01/18 09:17 Dose: 1,200 mg Lisinopril (Zestril) 20 mg PO BID [facility] Last Admin: 01/01/18 09:16 Dose: 20 mg Magnesium Hydroxide (Milk Of Magnesia) 30 ml PO DAILY PRN PRN Reason: Constipation Metoprolol Tartrate (Lopressor (Beta Kathe)) 50 mg PO BID [facility] Last Admin: 01/01/18 09:17 Dose: 50 mg Oxycodone HCl (Oxyir) 5 mg PO Q4H PRN PRN PRN Reason: Moderate Pain (pain scale 4-5) Potassium Chloride (K-Dur) [facility] Last Admin: 01/01/18 10:19 Dose: 10 meq Prednisone (Prednisone) 40 mg PO DAILY@0800 [facility] Last Admin: 01/01/18 09:16 Dose: 40 mg Promethazine HCl (Phenergan (Ll)) 12.5 mg IV Q6H PRN PRN PRN Reason: NAUSEA/VOMITING Sertraline HCl (Zoloft) 12.5 mg PO DAILY [facility] Last Admin: 01/01/18 09:15 Dose: 12.5 mg Sodium Chloride () 5 - 30 ml IV UD PRN PRN Reason: SALINE FLUSH Last Admin: 01/01/18 09:19 Dose: 10 ml Zolpidem Tartrate (Ambien (Generic)) 5 mg PO QHS PRN PRN PRN Reason: INSOMNIA Last Admin: 12/30/17 00:32 Dose: 5 mg Assessment/Plan Active and Suspected Problems Acute respiratory failure with hypoxia (Acute) CHF (congestive heart failure) (Acute) CVA (cerebral vascular accident) (Acute) 82 year old female admitted with progressive shortness of breath and managed as acute hypoxic respiratory failure secondary to suspected diastolic CHF. 1. Acute hypoxic respiratory failure secondary to acute diastolic CHF with superimposed bronchitis, improving slowly, remains on 2 L of oxygen, wean off for SPO2 more than 94%, continue breathing treatments, add incentive spirometer. 2. Acute diastolic CHF exacerbation, diuresing well,on Lasix 40 mg IV daily, will continue same management. 3. Acute bronchitis, history of repeated episodes of bronchitis since July, being on steroids and antibiotics on and off, suspect underlying COPD, on IV steroids and doxycycline, will switch to oral prednisone tomorrow, PFTs when discharged. 4. Acute kidney injury likely secondary to overdiuresis, resolved with changes in Lasix 5. Morbid obesity with BMI of 39.6 weight loss advised 6. Paroxysmal A. fib, rate controlled, on systemic anticoagulation with Eliquis 7. 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 8. Hypertension- controlled, continue on amlodipine to 5 mg p.o. daily, metoprolol 50 mg p.o. twice daily, lisinopril 20 mg p.o. twice daily 9. DVT prophylaxis - on Eliquis Code Visit Inpatient E&M: 61203 Subs Hosp L2
--- NOTE | 2018-01-01 15:24 | PN_ITS ---
Patient Problems: Active and Suspected Problems Acute respiratory failure with hypoxia (Acute) CHF (congestive heart failure) (Acute) CVA (cerebral vascular accident) (Acute) Subjective: Patient was seen and examined. Feels much better. Denies any fever or chills or SOB. Objective: PHYSICAL EXAM: General: Alert, Oriented x3, Cooperative, - - obese, in mild respiratory distress, on 3L oxygen HEENT: Atraumatic, PERRLA, EOMI, Normocephalic Oral: Moist Mucosa Neck: Supple Lungs: Diminished, Rales - at lung bases, Wheezes all over chest, improved few scattered wheezes present. Cardiovascular: Regular rate, Regular Rhythm, Normal S1, Normal S2, No murmurs Abdomen: Bowel Sounds Present, Soft, Non Tender, Non-Distended, No Hepato- splenomegaly, Obese Extremities: No edema Skin: No breakdown Musculoskeletal: No Tenderness to Palpation of Joints or Extremities Lymphatic: No Cervical, Supraclavicular, or Inguinal Adenopathy Neurological: Cranial nerves II-XII grossly intact, Neuro grossly intact Psych/Mental Status: Normal Affect, Appropriate Vitals/I&O's: Vital Signs Temp Pulse Resp BP Pulse Ox 98.6 F 73 16 162/91 H 93 01/01/18 09:00 01/01/18 11:10 01/01/18 10:35 01/01/18 09:00 01/01/18 09:00 Oxygen Flow Rate (L/min) 2 Oxygen Delivery Method Nasal Cannula Weight: 150.3 kg Intake and Output for Last 24 Hours 12/30/17 12/31/17 01/01/18 23:59 23:59 23:59 Intake Total 780 / 780 1060 / 1060 660 / 660 Output Total 525 / 525 1600 / 1600 500 / 500 Balance 255 / 255 -540 / -540 160 / 160 Laboratory Results 01/01/18 05:10: Sodium 140, Potassium 3.5, Chloride 98, Carbon Dioxide 36.0 H, Anion Gap 6, BUN 44 H, Creatinine 0.71, Estim Creat Clear Calc 42.18, Est GFR ( MDRD) Af Amer 102, Est GFR (MDRD) Non-Af 84, BUN/Creatinine Ratio 62.1 H, Glucose 78, Calcium 8.4 L Current Medications Al Hydroxide/Mg Hydroxide (Mylanta Ii) 30 ml PO Q6H PRN PRN PRN Reason: Gastric burning Albuterol Sulfate (Ventolin Aerosols) 2.5 mg INHALATION Q2H PRN PRN PRN Reason: SHORTNESS OF BREATH Last Admin: 12/31/17 20:43 Dose: 2.5 mg Albuterol/Ipratropium (Duoneb) 3 ml INHALATION Q4H.RT [facility] Last Admin: 01/01/18 14:56 Dose: 3 ml Amlodipine Besylate (Norvasc) 5 mg PO DAILY [facility] Last Admin: 01/01/18 09:17 Dose: 5 mg Apixaban (Eliquis) 5 mg PO BID [facility] Last Admin: 01/01/18 09:17 Dose: 5 mg [facility] Last Admin: 01/01/18 09:17 Dose: 81 mg Digoxin (Lanoxin) 125 mcg PO QHS [facility] Last Admin: 12/31/17 21:05 Dose: 125 mcg Docusate Sodium (Colace) 100 mg PO BID [facility] Last Admin: 01/01/18 09:17 Dose: 100 mg Furosemide (Lasix) 40 mg IV DAILY [facility] Last Admin: 01/01/18 09:20 Dose: 40 mg Gabapentin (Neurontin) [facility] Last Admin: 01/01/18 09:17 Dose: 300 mg Guaifenesin (Mucinex) 1,200 mg PO BID [facility] Last Admin: 01/01/18 09:17 Dose: 1,200 mg Lisinopril (Zestril) 20 mg PO BID [facility] Last Admin: 01/01/18 09:16 Dose: 20 mg Magnesium Hydroxide (Milk Of Magnesia) 30 ml PO DAILY PRN PRN Reason: Constipation Metoprolol Tartrate (Lopressor (Beta Kathe)) 50 mg PO BID [facility] Last Admin: 01/01/18 09:17 Dose: 50 mg Oxycodone HCl (Oxyir) 5 mg PO Q4H PRN PRN PRN Reason: Moderate Pain (pain scale 4-5) Potassium Chloride (K-Dur) [facility] Last Admin: 01/01/18 10:19 Dose: 10 meq Prednisone (Prednisone) 40 mg PO DAILY@0800 [facility] Last Admin: 01/01/18 09:16 Dose: 40 mg Promethazine HCl (Phenergan (Ll)) 12.5 mg IV Q6H PRN PRN PRN Reason: NAUSEA/VOMITING Sertraline HCl (Zoloft) 12.5 mg PO DAILY [facility] Last Admin: 01/01/18 09:15 Dose: 12.5 mg Sodium Chloride () 5 - 30 ml IV UD PRN PRN Reason: SALINE FLUSH Last Admin: 01/01/18 09:19 Dose: 10 ml Zolpidem Tartrate (Ambien (Generic)) 5 mg PO QHS PRN PRN PRN Reason: INSOMNIA Last Admin: 12/30/17 00:32 Dose: 5 mg Assessment/Plan Active and Suspected Problems Acute respiratory failure with hypoxia (Acute) CHF (congestive heart failure) (Acute) CVA (cerebral vascular accident) (Acute) 82 year old female admitted with progressive shortness of breath and managed as acute hypoxic respiratory failure secondary to suspected diastolic CHF. 1. Acute hypoxic respiratory failure secondary to acute diastolic CHF with superimposed bronchitis, improving slowly, remains on 2 L of oxygen, wean off for SPO2 more than 94%, continue breathing treatments, add incentive spirometer. 2. Acute diastolic CHF exacerbation, diuresing well,on Lasix 40 mg IV daily, will continue same management. 3. Acute bronchitis, history of repeated episodes of bronchitis since July, being on steroids and antibiotics on and off, suspect underlying COPD, on IV steroids and doxycycline, will switch to oral prednisone tomorrow, PFTs when discharged. 4. Acute kidney injury likely secondary to overdiuresis, resolved with changes in Lasix 5. Morbid obesity with BMI of 39.6 weight loss advised 6. Paroxysmal A. fib, rate controlled, on systemic anticoagulation with Eliquis 7. 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 8. Hypertension- controlled, continue on amlodipine to 5 mg p.o. daily, metoprolol 50 mg p.o. twice daily, lisinopril 20 mg p.o. twice daily 9. DVT prophylaxis - on Eliquis Code Visit Inpatient E&M: 51326 Subs Hosp L2
--- NOTE | 2018-01-01 19:00 | NURSING ---
Reviewed and agreed on all charting with Petrona Oneill RN
[2018-01-01] MEDS: Digoxin 125 MCG Tablet PO (21:00)
[2018-01-02] VITALS (12 sets, daily range): BP systolic 126–156; BP diastolic 55–87; PULSE 66–85; RESP 16–20; TEMP 36.4–37; O2SAT 88–99
--- NOTE | 2018-01-02 03:00 | NURSING ---
Gave report to Marti Keating at this time. She will take over care of this pt. at this time.
[2018-01-02] MEDS: Ipratropium/Albuterol Sulfate 3 ML AMPUL.NEB INHALATION ×3 (03:43→10:44)
[2018-01-02 05:31] LABS: Anion Gap 5 (5-15); BUN 48 mg/dL (7-18); BUN/Creat Ratio 61.1 RATIO (10-20); Calcium,Total 8.4 mg/dL (8.5-10.1); Chloride 98 mmol/L (98-107); Creatinine, Serum 0.78 mg/dL (0.55-1.02); EST Glomerular Filtration Rate 75 mL/min (>60); Est Glom Filt Rate - Afr Amer 90 mL/min (>60); Estimated Creatinine Clearance 42.18 ml/min; Glucose 90 mg/dL (74-106); Potassium 3.6 mmol/L (3.5-5.1); Sodium Level 140 mmol/L (136-145)
[2018-01-02] MEDS: amLODIPine 5 MG Tablet PO (09:38)
[2018-01-02] MEDS: Gabapentin 300 MG Capsule PO (09:38)
[2018-01-02] MEDS: Metoprolol Tartrate 50 MG Tablet PO (09:38)
[2018-01-02] MEDS: guaiFENesin 1,200 MG Tablet 1200 MG PO (09:38)
[2018-01-02] MEDS: Docusate Sodium 100 MG Capsule PO (09:39)
[2018-01-02] MEDS: Aspirin E.C. 81 MG Tablet PO (09:39)
[2018-01-02] MEDS: Furosemide 40 MG/4 ML Vial IV (09:39)
[2018-01-02] MEDS: APIXABAN 5 MG TABLET PO (09:39)
[2018-01-02] MEDS: Lisinopril 20 MG Tablet PO (09:40)
[2018-01-02] MEDS: Sertraline 50 MG Tablet 12.5 MG PO (09:40)
--- NOTE | 2018-01-02 10:42 | PCM.DC ---
- Discharge Diagnoses Current Active Problems: Current Active and Chronic Problems Acute respiratory failure with hypoxia (Acute) CHF (congestive heart failure) (Acute) Bronchitis (Chronic) Afib (Chronic) Essential (primary) hypertension (Chronic) CVA (cerebral vascular accident) (Acute) CVA, old, hemiparesis (Chronic) Reason(s) for Visit for Discharge Instructions: Shortness of breath You will use the following diet at home:: Calorie/Carbohydrate Controlled (specify 1200, 1400, etc), Cardiac Your food should be the consistency of: Regular Your liquids should be the consistency of: Regular/Thin Discharge Activity: Return to Normal Activity Additional Instructions: Continue to wear your oxygen all the time. Be careful near fire whilst on oxygen. Take all your medications as prescribed. You will need to see the lung doctor to have a lung function test. You will have home health. Watch your salt intake and weigh yourself at least 3x/ week. Let your doctor know if you gain more than 4 pounds in weight. Allergies/Adverse Reactions: Allergies Sulfa (Sulfonamide Antibiotics) Allergy (Verified 12/29/17 14:20) Other Medications to take at Discharge Amlodipine [Norvasc] 5 mg PO DAILY 11/15/16 Digoxin [Lanoxin] 125 mcg PO QHS 11/15/16 Lisinopril [Zestril] 20 mg PO BID 11/15/16 Apixaban [Eliquis] 5 mg PO BID 12/29/17 Aspirin [Aspir-Low] 81 mg PO DAILY 12/29/17 Gabapentin [Neurontin] 300 mg PO DAILY 12/29/17 Metoprolol Tartrate [Lopressor (beta lali)] 50 mg PO BID 12/29/17 Sertraline HCl [Zoloft] 12.5 mg PO DAILY 12/29/17 Furosemide [Lasix] 40 mg PO DAILY #30 tab 01/02/18 Guaifenesin [Mucinex] 1,200 mg PO BID #14 tab 01/02/18 Ipratropium/Albuterol Sulfate [Duoneb] 3 ml INHALATION Q4H.RT #100 ampul.neb 01/02/18 Levofloxacin [Levaquin] 500 mg PO DAILY #5 tab 01/02/18 Potassium Chloride [K-Dur] 10 meq PO DAILYCM #30 tab 01/02/18 Prednisone See Taper PO DAILY #30 01/02/18 The following prescriptions were given: Ipratropium/Albuterol Sulfate [Duoneb] 3 ml INHALATION Q4H.RT #100 ampul.neb Furosemide [Lasix] 40 mg PO DAILY #30 tab Potassium Chloride [K-Dur] 10 meq PO DAILYCM #30 tab Guaifenesin [Mucinex] 1,200 mg PO BID #14 tab Orders to be completed after discharge: Basic Metabolic Profile (BMP) Location: Laboratory CBC W/Diff, Automated Location: Laboratory Primary Care Physician: Reinier Sweeney [Primary Care Provider] - Please follow up with your Primary Care Physician in: within 2 weeks Please Follow Up With: Joel Bolivar MD When: within 2 weeks, will need Pulmonary function testing and sleep study Proposed Discharge Date: 01/02/18
--- NOTE | 2018-01-02 10:53 | DCINST_ITS ---
- Discharge Diagnoses Current Active Problems: Current Active and Chronic Problems Acute respiratory failure with hypoxia (Acute) CHF (congestive heart failure) (Acute) Bronchitis (Chronic) Afib (Chronic) Essential (primary) hypertension (Chronic) CVA (cerebral vascular accident) (Acute) CVA, old, hemiparesis (Chronic) Reason(s) for Visit for Discharge Instructions: Shortness of breath You will use the following diet at home:: Calorie/Carbohydrate Controlled ( specify 1200, 1400, etc), Cardiac Your food should be the consistency of: Regular Your liquids should be the consistency of: Regular/Thin Discharge Activity: Return to Normal Activity Additional Instructions: Continue to wear your oxygen all the time. Be careful near fire whilst on oxygen. Take all your medications as prescribed. You will need to see the lung doctor to have a lung function test. You will have home health. Watch your salt intake and weigh yourself at least 3x/ week. Let your doctor know if you gain more than 4 pounds in weight. Allergies/Adverse Reactions: Allergies Sulfa (Sulfonamide Antibiotics) Allergy (Verified 12/29/17 14:20) Other Medications to take at Discharge Amlodipine [Norvasc] 5 mg PO DAILY 11/15/16 Digoxin [Lanoxin] 125 mcg PO QHS 11/15/16 Lisinopril [Zestril] 20 mg PO BID 11/15/16 Apixaban [Eliquis] 5 mg PO BID 12/29/17 Aspirin [Aspir-Low] 81 mg PO DAILY 12/29/17 Gabapentin [Neurontin] 300 mg PO DAILY 12/29/17 Metoprolol Tartrate [Lopressor (beta lali)] 50 mg PO BID 12/29/17 Sertraline HCl [Zoloft] 12.5 mg PO DAILY 12/29/17 Furosemide [Lasix] 40 mg PO DAILY #30 tab 01/02/18 Guaifenesin [Mucinex] 1,200 mg PO BID #14 tab 01/02/18 Ipratropium/Albuterol Sulfate [Duoneb] 3 ml INHALATION Q4H.RT #100 ampul.neb 06/14 Levofloxacin [Levaquin] 500 mg PO DAILY #5 tab 01/02/18 Potassium Chloride [K-Dur] 10 meq PO DAILYCM #30 tab 01/02/18 Prednisone See Taper PO DAILY #30 01/02/18 The following prescriptions were given: Ipratropium/Albuterol Sulfate [Duoneb] 3 ml INHALATION Q4H.RT #100 ampul.neb Furosemide [Lasix] 40 mg PO DAILY #30 tab Potassium Chloride [K-Dur] 10 meq PO DAILYCM #30 tab Guaifenesin [Mucinex] 1,200 mg PO BID #14 tab Orders to be completed after discharge: Basic Metabolic Profile (BMP) Location: Laboratory CBC W/Diff, Automated Location: Laboratory Primary Care Physician: Reinier Sweeney [Primary Care Provider] - Please follow up with your Primary Care Physician in: within 2 weeks Please Follow Up With: Joel Bolivar MD When: within 2 weeks, will need Pulmonary function testing and sleep study Proposed Discharge Date: 01/02/18
--- NOTE | 2018-01-02 10:53 | PCM.DC.SUM ---
Discharge Date and Diagnosis Date of Admission: 12/29/17 Date of Discharge: 01/02/18 - Primary Discharge Diagnosis Active and Suspected Problems Acute respiratory failure with hypoxia (Acute) CHF (congestive heart failure) (Acute) CVA (cerebral vascular accident) (Acute) - Secondary Discharge Diagnosis Chronic Problems Bronchitis (Chronic) Afib (Chronic) Essential (primary) hypertension (Chronic) CVA, old, hemiparesis (Chronic) Hospital Course and Treatment Imaging Results: Clinical Impression(s) from Imaging Studies Chest X-Ray 12/29/17 14:23 IMPRESSION: Findings suspicious for vascular congestion. Cannot exclude atypical infiltrates. Electronically Signed: Alisa Lainez MD at 14:48 EST Tel , Service support , None Operations: None Procedures: 2-D Echocardiogram Summary of Care Provided: 82 year old female admitted with progressive shortness of breath and managed as acute hypoxic respiratory failure secondary to suspected diastolic CHF. 1. Acute hypoxic respiratory failure secondary to acute diastolic CHF with superimposed bronchitis, improved on oxygen, Patient qualified for home oxygen with desaturation at 88% on room air, hydrated well on 2 L of oxygen, discharged home with use oxygen. 2. Acute diastolic CHF exacerbation/pulmonary hypertension, diuresed well with IV Lasix, discharged on p.o. Lasix 40 mg daily, patient would need to have a sleep study done in the outpatient. 3. Acute bronchitis, history of repeated episodes of bronchitis since July, being on steroids and antibiotics on and off, suspect underlying COPD, improved on IV steroids, discharged on p.o. prednisone and Levaquin, patient needs to follow-up with pulmonology for pulmonary function testing to help diagnose COPD. 4. Acute kidney injury likely secondary to overdiuresis, resolved with changes in Lasix 5. Morbid obesity with BMI of 39.6 weight loss advised 6. Paroxysmal A. fib, rate controlled, on systemic anticoagulation with Eliquis 7. 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 Hypertension, controlled, triamterene hydrochlorothiazide stopped, started on amlodipine Discharge Diet: Low fat/ Low Cholesterol, 6 Cup Fluid Restriction, 2000 mg Sodium Diet Discharge Activity: Return to Normal Activity Home Medications: Medications to take at Discharge Amlodipine [Norvasc] 5 mg PO DAILY 11/15/16 Digoxin [Lanoxin] 125 mcg PO QHS 11/15/16 Lisinopril [Zestril] 20 mg PO BID 11/15/16 Apixaban [Eliquis] 5 mg PO BID 12/29/17 Aspirin [Aspir-Low] 81 mg PO DAILY 12/29/17 Gabapentin [Neurontin] 300 mg PO DAILY 12/29/17 Metoprolol Tartrate [Lopressor (beta lali)] 50 mg PO BID 12/29/17 Sertraline HCl [Zoloft] 12.5 mg PO DAILY 12/29/17 Furosemide [Lasix] 40 mg PO DAILY #30 tab 01/02/18 Guaifenesin [Mucinex] 1,200 mg PO BID #14 tab 01/02/18 Ipratropium/Albuterol Sulfate [Duoneb] 3 ml INHALATION Q4H.RT #100 ampul.neb 01/02/18 Levofloxacin [Levaquin] 500 mg PO DAILY #5 tab 01/02/18 Potassium Chloride [K-Dur] 10 meq PO DAILYCM #30 tab 01/02/18 Prednisone See Taper PO DAILY #30 01/02/18 Following Prescrptions Were Given to Patient: Ipratropium/Albuterol Sulfate [Duoneb] 3 ml INHALATION Q4H.RT #100 ampul.neb Furosemide [Lasix] 40 mg PO DAILY #30 tab Levofloxacin [Levaquin] 500 mg PO DAILY #5 tab Potassium Chloride [K-Dur] 10 meq PO DAILYCM #30 tab Guaifenesin [Mucinex] 1,200 mg PO BID #14 tab Other Amb Orders: Basic Metabolic Profile (BMP) Location: Laboratory CBC W/Diff, Automated Location: Laboratory Primary Care Physician: Reinier Sweeney [Primary Care Provider] - Please follow up with your Primary Care Physician in: within 2 weeks Please Follow Up With: Joel Bolivar MD When: within 2 weeks, will need Pulmonary function testing and sleep study Disposition: Home with Home Health Minutes spent on discharge:: 35 - Patient more than 30 minutes going over discharge instructions with the family Patient Condition:: Fair Meaningful Use Info Meaningful Use Diagnoses (Choose all that apply): CHF - CHF TED/ARB ordered at discharge?: Yes Documented LVEF (%): 65 Code Visit Inpatient E&M: 82992 Disch Hosp
--- NOTE | 2018-01-02 10:55 | CASEMGMT ---
Addendum entered by Joycelyn Salas 01/02/18 15:20: This RN CM placed call to Katheryn at [facility] and updated her on family indecision and that pt/family are meeting with Hospice tomorrow am. Katheryn states that she will place a call to pt/family tomorrow to f/u after Hospice meeting. Abdiaziz HANSON CM Original Note: Addendum entered by Joycelyn Salas 01/02/18 13:25: This RN CM back to room to speak with pt and family regarding HHC decision. Pt still states would like to try HHC at this time but family is questioning whether she needs it, whether she will do it and what it's really going to do for her. This RN CM answered all family questions to the best of my ability at this time and family said they are willing to try HHC at this time. Hospice had just met with pt and stated that pt/family would like to meet with Hospice tomorrow am. This RN CM is unsure if pt would like to go Hospice at this time, but if she decides to go Hospice tomorrow then HHC would not be needed. This RN CM will speak with pt/family again after [facility] returns call with info regarding home oxygen. Abdiaziz HANSON CM Original Note: This RN CM to room to speak with pt regarding need for home oxygen and HHC set up at this time. Pt's daughter is at bedside and is concerned about HHC being set up for pt as daughter states that she was 'not very compliant' in the past with therapy and they are concerned about pt 'not complying again.' Pt would still like [facility] HHC still set up at this time, but family stated that the whole family will be speaking with Dr. Fontanez at 1100 and they would like this RN CM to come back later to see about final decision. Pt/daughter state would like [facility] for home oxygen at this time. Referral faxed and attempted to call [facility] to discuss pt being [place] and without electricity at this time, but unable to speak with [employer]INE [employer]. Abdiaziz HANSON CM
--- NOTE | 2018-01-02 13:24 | CASEMGMT ---
HELENA faxed d/c instructions to Palliative Care. Jazz from Hospice came to hospital as family also wanted to know about Hospice. After Jazz's conversation with family they want Hospice to see her at home. She said a Hospice nurse will go out to their home tomorrow to evaluate and see if she is appropriate for Hospice. Iwona BRANDON MSW
--- NOTE | 2018-01-02 16:00 | NURSING ---
Reviewed and agreed on all charting with Petrona Roldan RN
== END 2018-01-02 16:05 | disposition home or self-care (01) | DRG 291 ==
LOC: ED 14:58 → PCU 15:55
PROVIDERS: Admitting Provider Internal Medicine; Emergency Provider Emergency Medicine; Family Provider Family Medicine; PCP Family Medicine; Visit Provider Internal Medicine
DX: I11.0 Hypertensive heart disease with heart failure (principal); J96.01 Acute respiratory failure with hypoxia; N17.9 Acute kidney failure, unspecified; I69.354 Hemiplegia and hemiparesis following cerebral infarction affecting left non-dominant side; I50.33 Acute on chronic diastolic (congestive) heart failure; E66.01 Morbid (severe) obesity due to excess calories; I48.0 Paroxysmal atrial fibrillation; Z79.01 Long term (current) use of anticoagulants; Z68.39 Body mass index [BMI] 39.0-39.9, adult; J20.9 Acute bronchitis, unspecified
CPT/HCPCS: 36415; 36600; 71045; 80048; 80162; 82803; 83735; 83880; 84484; 85025; 85027; 87040; 87804; 93005; 93306; 94002; 94640; 97110; 97162; 97166; 97530; 97802; 99251; 99285; A4216; G0463; J1940